=== PATIENT | female | born 1955 | race Caucasian/White ===

== ENCOUNTER 2016-07-21 14:17 | Inpatient (IN) | payer OTHER ==
[~2016-07-21] VITALS: Ht 172.7 cm; Wt 79.3 kg
[2016-07-22] MEDS ORDERED: PLAQ200T PO (15:23)
[2016-07-22] MEDS ORDERED: HYDR-3516 PO (15:23)
[2016-07-22] MEDS ORDERED: MACR100C2 PO (15:23)
[2016-07-22] MEDS ORDERED: TRAM50TA PO (15:23)
[2016-07-22] MEDS ORDERED: MOBI15TA PO (15:23)
[2016-07-22] MEDS ORDERED: TIZA4 PO (15:23)
[2016-07-22] MEDS ORDERED: ACYC200C66 PO (15:25)
[2016-07-22] MEDS ORDERED: BUTA1CAP PO (15:25)
[2016-08-04] MEDS ORDERED: PROPOFOL 200 MG/20 ML AMP IV ONE (07:53)
[2016-08-04] MEDS ORDERED: LACTATED RINGER'S 1000 ML INJ 1,000 ML IV ONE (07:53)
[2016-08-04] MEDS ORDERED: NEOSTIGMINE 3 MG/3 ML SYR IV ONE (07:53)
[2016-08-04] MEDS ORDERED: PHENYLEPH/NS 1000 MCG/10 ML SYR IV ONE (07:53)
[2016-08-04] MEDS ORDERED: ONDANSETRON HCL 4 MG/2 ML VIAL IV PUSH ONE (07:53)
[2016-08-04 08:46] VITALS: BP 108/68; PULSE 78; RESP 16; TEMP 98.6; O2SAT 100
[2016-08-04] MEDS ORDERED: SODIUM CHLOR 0.9% 250 ML INJ 250 ML ONE (09:17)
[2016-08-04] MEDS ORDERED: VANCOMYCIN HCL 1000 MG VIAL ONE (09:18)
[2016-08-04] MEDS ORDERED: ACETAMINOPHEN 1000 MG/100 ML VIAL IV ONE (10:40)
[2016-08-04] MEDS ORDERED: DEXAMETHASONE SOD PHOS 4 MG/ML VIAL ONE (10:41)
[2016-08-04] MEDS ORDERED: FAMOTIDINE 20 MG/2 ML VIAL ONE (10:41)
[2016-08-04] MEDS ORDERED: GENTAMICIN SULFATE 80 MG/2 ML VIAL ONE (10:50)
[2016-08-04] MEDS ORDERED: WALKER/ADULT/FO1 MIS (11:08)
[2016-08-04] MEDS ORDERED: XARE10TA PO (11:08)
[2016-08-04] MEDS ORDERED: HYDR-3366 PO (11:08)
[2016-08-04] MEDS ORDERED: ceFAZolin INJ 1,000 MG VIAL ONE (11:26)
[2016-08-04] MEDS: SODIUM CHLORIDE 0.9% IV SCH ×2 (11:30→11:48)
[2016-08-04] MEDS: TRANEXAMIC ACID IV SCH ×2 (11:30→11:48)
[2016-08-04] MEDS ORDERED: VANCOMYCIN 1000 MG/NS 250 ML (for <70 kg) IV SCH ×2 (11:30)
[2016-08-04] MEDS: CHLORHEXIDINE GLUCONATE 4% SOLN 120 ML BTL TOP SCH (11:30)
[2016-08-04] MEDS: EXPAREL PERI-ARTICULAR INJECTION (TOTAL VOL. 60 ML) P-ARTICULR SCH ×4 (11:30→13:00)
--- NOTE | 2016-08-04 13:13 | PD.OP ---
cc: Adin Noble MD Operative Report Date of Surgery: Aug 04, 2016 Preoperative Diagnosis: Severe left hip osteoarthritis Postoperative Diagnosis: Procedure: left total hip arthroplasty by anterior approach Anesthesia: Gen. Surgeon: Adin Noble Brooch And Bracelet Maker(s): MARISSA Anthony PA-C The surgical procedure was assisted by my physician registered dental assistant. My P.A. presence was necessary throughout this case for the manipulation and positioning of the surgical extremity. My P.A. was assisting me throughout the duration of this procedure. The skill set of a physician registered dental assistant was medically necessary to complete this procedure. During the surgical case the rn surgical was working at the back table and the physician registered dental assistant was directly assisting me. Operation and Findings: PLAN OF ACTIVITY Weight bear as tolerated. DRAINS: 7-mm MAXINE drain. IMPLANTS USED DePuy Corail size [12 high offset stem with a size [50] [place] Gription cup and a [32+1.5] ceramic Biolox ceramic head. DETAILS OF PROCEDURE: This patient has a long history of left hip pain. Patient was found to have severe osteoarthritis. The patient had radiographic evidence of joint space narrowing with [id number] arthritis and osteophytes around the acetabulum as well as the femoral head. There was also some cystic changes. The patient failed conservative treatment with pain medications, anti-inflammatories, physical therapy, assistive devices including a cane, as well as therapeutic injection of the hip. Patient's hip arthritis was limiting his ability to ambulate and perform activities of daily living. The patient wished to proceed with surgery and informed consent was obtained. Operative site was marked. I discussed both posterior approach and anterior approach with the patient and decision was made for anterior approach. Patient was brought to OR and placed on OR table. IV sedation and general anesthesia was administered by anesthesiologist. Patient positioned on a Di table and was given IV antibiotics. Time-out procedure was performed. The hip and thigh were prepped with alcohol followed by Hibiclens. The thigh was draped in the usual sterile fashion. Clean Air Suite was used for this procedure. The procedure began with a 5-inch incision over the anterolateral thigh. Subcutaneous tissue was dissected with Bovie. The fascia over the tensa fasciae latae was incised. Care was taken to avoid injury to the lateral femoral cutaneous nerve. The tensor muscle was retracted laterally. Sartorius was retracted medially. Retractors were now placed. The reflected head of the rectus is now elevated. A capsulotomy was performed over the anterior head capsule. Sutures were placed to help retract the capsule. At this point the femoral head and neck were identified. With soft tissue protected, oscillating saw was used to make a cut through the femoral neck, the femoral head was now removed. At this point attention was turned to preparation of the acetabulum. The labrum was excised. The acetabulum was sequentially reamed up to size [50]. A 50 [place] cup was now placed. Fluoroscopy was used to aid in identification of appropriate version. Cup was fully impacted and found to have excellent fit. Hole eliminator was now placed. The liner was now impacted into the cup. At this point the hip was externally rotated. A hook was placed around the proximal femur. The capsule was released off the lateral and medial femur. The hip was now extended and adducted. Retractors were placed around the proximal femur to allow for exposure. A box osteotome was used to remove the lateral cortex of the femoral neck. A broach was used to help lateralize the prosthesis. Canal finder was used to create a path down the canal. Next, the canal was sequentially broached up to size 12. This was found to be an excellent fit. Calcar planer was placed. A standard head was placed, hip was reduced. Trial head was now was placed and the hip was found to have excellent stability with good range of motion. The leg lengths were measured under fluoroscopy and found to be equal compared to preoperatively. Trial broach was removed. The Corail stem was opened. Stem was fully impacted into the proximal femur in appropriate version. The femoral head was placed. The hip was again reduced. Fluoroscopy confirmed excellent alignment of prosthesis. The wound was thoroughly irrigated and capsule was closed with #1 Vicryl. The fascia over the tensor fasciae muscle was closed with #1 Vicryl, subcutaneous tissue was closed with 3-0 Vicryl and the skin was closed with shelli and Dermabond skin closure. The capsule layers were injected with a mixture of saline and bupivicaine. Dressings were applied. The patient was transferred to Recovery Room in stable condition. Adin Noble MD Aug 04, 2016 13:13
[2016-08-04] MEDS ORDERED: NALOXONE HCL 0.4 MG/ML AMP IV PRN (13:15)
[2016-08-04] MEDS ORDERED: ACETAMINOPHEN/HYDROcodone 325 MG/10 MG TAB PO PRN ×2 (13:15)
[2016-08-04] MEDS ORDERED: Post-op Orders (for Pharmacy) MISC XX ONE (13:15)
[2016-08-04] MEDS ORDERED: ONDANSETRON HCL 4 MG/2 ML VIAL IVP PRN (13:15)
[2016-08-04] MEDS ORDERED: MORPHINE SULFATE 4 MG/ML INJ IV PUSH PRN (13:15)
[2016-08-04] MEDS ORDERED: SODIUM CHLORIDE 0.9% FLUSH 5 ML FLUSH IVF PRN (13:15)
[2016-08-04] MEDS ORDERED: TRANEXAMIC ACID INJ 1,000 MG in SODIUM CHLORIDE 0.9% INJ 100 ML IV SCH (13:30)
[2016-08-04] MEDS ORDERED: DO NOT ADM ANY ANTICOAGULANT DRUGS XX PRN (13:35)
[2016-08-04] MEDS ORDERED: *PROMETHAZINE 25 MG/ML VIAL PERIprocedural use ONLY ONE (13:41)
[2016-08-04] MEDS ORDERED: MIDAZOLAM HCL 2 MG/2 ML VIAL ONE (13:47)
[2016-08-04] MEDS ORDERED: *morphine SULFATE 8 MG/ML PERIprocedure ONLY ONE ×3 (13:47→14:10)
[2016-08-04] MEDS ORDERED: MORPHINE SULFATE 4 MG/ML INJ ONE (13:47)
[2016-08-04] MEDS ORDERED: fentaNYL CITRATE 250 MCG/5 ML AMP ONE (13:48)
[2016-08-04] MEDS ORDERED: ACETAMIN 325 MG/BUTALBITAL 50 MG/CAFFEINE 40 MG TAB PO PRN (14:00)
[2016-08-04] MEDS: LACTATED RINGER'S 1000 ML INJ 1,000 ML IV SCH (14:08)
[2016-08-04] MEDS ORDERED: *HYDROmorphone PF 1 MG VIAL PERIprocedural Use ONLY ONE (14:20)
--- NOTE | 2016-08-04 14:59 | RADRPT ---
EXAM DATE/TIME: 08/04/2016 14:15 [facility] COMPARISON: No previous studies available for comparison. INDICATIONS : Post-op total left hip arthroplasty. MEDICAL HISTORY : None. SURGICAL HISTORY : Fusion, lumbar. Hysterectomy. Cholecystectomy. Right breast lumpectomy. ENCOUNTER: Initial ACUITY: 1 day PAIN SCORE: 5/10 LOCATION: Left hip. FINDINGS: 2 AP views of the pelvis were obtained and demonstrate the patient status post left hip arthroplasty with femoral and acetabular components which are intact and in normal alignment. There is an adjacent surgical drain as well as soft tissue swelling. Degenerative changes are also noted in the right hip with sclerosis, joint space loss and hypertrophic change. There is flattening and remodeling of the superior acetabulum and femoral head. There is mild osteopenia. CONCLUSION: 1. Status post left hip arthroplasty. 2. Moderate to severe degenerative change in the right hip. Travis Day MD on August 04, 2016 at 14:56 Board Certified Radiologist. This report was verified electronically.
[2016-08-04] MEDS: KETOROLAC TROMETHAMINE 30 MG/ML (IVP) VIAL IV PUSH SCH (15:56)
--- NOTE | 2016-08-04 16:12 | RADRPT ---
EXAM DATE/TIME: 08/04/2016 11:42 [facility] COMPARISON: No previous studies available for comparison. INDICATIONS : Left total hip replacement. MEDICAL HISTORY : None. SURGICAL HISTORY : None. ENCOUNTER: Initial ACUITY: 1 day PAIN SCORE: 10/10 LOCATION: Left hip. FINDINGS: AP and oblique views of the left hip were obtained and demonstrate that the patient is status post le ft hip arthroplasty. The femoral and acetabular components are intact and in normal alignment. There are overlying artifacts and surgical skin shelli. CONCLUSION: Dissected postoperative changes status post left hip arthroplasty. Travis Day MD on August 04, 2016 at 16:10 Board Certified Radiologist. This report was verified electronically.
[2016-08-04] MEDS: ceFAZolin 2 GM PREMIX 50 ML IV SCH (19:00)
[2016-08-04 19:30] VITALS: BP 104/62; PULSE 70; RESP 18; TEMP 98; O2SAT 100
[2016-08-04] MEDS: SODIUM CHLORIDE 0.9% FLUSH 5 ML FLUSH IVF SCH (20:50)
[2016-08-04] MEDS: VANCOMYCIN INJ 1,000 MG in SODIUM CHLOR 0.9% 250 ML INJ 250 ML IV SCH (20:59)
[2016-08-04] MEDS ORDERED: ACYCLOVIR 200 MG CAP PO PRN (21:00)
[2016-08-04] MEDS: HYDROXYCHLOROQUINE SULFATE 200 MG TAB PO SCH (21:54)
[2016-08-05] VITALS (10 sets, daily range): BP systolic 81–125; BP diastolic 42–69; PULSE 57–117; RESP 16–17; TEMP 96.3–99.7; O2SAT 92–100
[2016-08-05] MEDS: ceFAZolin 2 GM PREMIX 50 ML IV SCH ×2 (00:24→06:02)
[2016-08-05] MEDS: LACTATED RINGER'S 1000 ML INJ 1,000 ML IV SCH ×2 (01:40→14:10)
[2016-08-05] MEDS: KETOROLAC TROMETHAMINE 30 MG/ML (IVP) VIAL IV PUSH SCH ×2 (03:25→15:43)
--- NOTE | 2016-08-05 06:40 | PD.ORT.PN ---
Subjective Subjective Remarks Pain controlled and doing well Objective Vitals Vital Signs Date Time Temp Pulse Resp B/P Pulse Ox O2 Delivery O2 Flow Rate FiO2 08/05/16 04:00 97.8 73 16 93/53 97 08/05/16 00:00 98.9 58 16 95/49 98 08/04/16 21:05 18 08/04/16 19:30 98.0 70 18 104/62 100 08/04/16 16:56 16 08/04/16 15:05 97.5 63 15 108/60 99 Nasal Cannula 2 08/04/16 15:00 62 14 117/55 100 Nasal Cannula 2 08/04/16 14:45 60 14 112/58 100 Nasal Cannula 2 08/04/16 14:30 75 14 120/62 100 Nasal Cannula 2 08/04/16 14:15 70 14 129/71 100 Nasal Cannula 2 08/04/16 14:00 70 14 118/60 100 Nasal Cannula 2 08/04/16 13:45 78 14 126/75 98 Nasal Cannula 2 08/04/16 13:39 97.5 86 11 123/66 97 Nasal Cannula 2 08/04/16 08:46 98.6 78 16 108/68 100 I/O 08/04/16 08/04/16 08/04/16 08/05/16 08/05/16 08/05/16 07:00 15:00 23:00 07:00 15:00 23:00 Intake Total 1400 ml 350 ml Output Total 870 ml 1050 ml Balance 530 ml -700 ml Intake IV Total 200 ml 350 ml Other 1200 ml Output Urine Total 400 ml 950 ml Drainage Total 70 ml 100 ml Estimated Blood Loss 400 ml Imaging Last 24 hours Impressions Hip and Pelvis X-Ray 08/04/16 1310 Signed Impressions: Service Date/Time: Thursday, August 04, 2016 14:15 - CONCLUSION: 1. Status post left hip arthroplasty. 2. Moderate to severe degenerative change in the right hip. Aileen Day MD Objective Remarks Left lower extremity: Clean dry dressings intact with drain in place. Mild swelling. Full range of motion of knee and ankle. Distally intact sensation with good capillary refills. She has strong dorsiflexion and plantar flexion foot Assessment & Plan Assessment and Plan Left total hip arthroplasty anterior approach POD 1 Physical therapy weightbearing as tolerated twice a day Discontinue drain Begin daily dressing changes POD 2 Case management for home health care and discharge tomorrow to home Lovenox Incentive spirometry and SCDs AILEEN DIAZ PA-C Aug 05, 2016 06:40
[2016-08-05 08:08] LABS: HEMATOCRIT 27.7 % (35.0-46.0); REVIEW FLAG FINAL
[2016-08-05] MEDS: VANCOMYCIN INJ 1,000 MG in SODIUM CHLOR 0.9% 250 ML INJ 250 ML IV SCH (09:26)
[2016-08-05] MEDS: SODIUM CHLORIDE 0.9% FLUSH 5 ML FLUSH IVF SCH ×2 (09:30→22:16)
[2016-08-05] MEDS: HYDROXYCHLOROQUINE SULFATE 200 MG TAB PO SCH ×2 (09:31→22:14)
[2016-08-05] MEDS: CHLORHEXIDINE GLUCONATE 4% SOLN 120 ML BTL TOP SCH (10:46)
[2016-08-05] MEDS ORDERED: MAGNESIUM HYDROXIDE SUSP 30 ML CUP PO ONE (11:00)
[2016-08-05] MEDS: ENOXAPARIN SODIUM 40 MG/0.4 ML SYRINGE SQ SCH (12:59)
--- NOTE | 2016-08-05 14:11 | PD.CONS ---
HPI Service [facility] Hospitalists Consult Requested By Dr. Adin Lares Reason for Consult Medical Management Primary Care Physician Bryant Desir M.D. Diagnoses: History of Present Illness Mrs. St is a pleasant 60 y/o female with osteoarthritis and fibromyalgia who was admitted on 08/04/16 for elective right total hip arthroplasty by anterior approach with Dr. Lares. Post-operatively the pt has been having some hypotension. This is likely secondary to pain medications and anesthesia. In review of previous records she had similar issues with hypotension after lumbar spine surgery in 2011. Pt does not have issues with hypertension and is not on any antihypertensives as an outpt. Pt denies any chest pain, SOB, palpitations, dizziness, weakness, nausea or vomiting. Review of Systems Constitutional: DENIES: Diaphoretic episodes, Fever, Chills, Dizziness Respiratory: DENIES: Shortness of breath Cardiovascular: DENIES: Chest pain, Palpitations Gastrointestinal: DENIES: Nausea, Vomiting Genitourinary: DENIES: Hematuria Musculoskeletal: COMPLAINS OF: Joint pain Integumentary: DENIES: Rash Neurologic: DENIES: Abnormal gait, Headache, Localized weakness Past Family Social History Past Medical History Osteoarthritis Migraine Headaches Fibromyalgia Lumbar radiculopathy Chronic allergic conjunctivitis Past Surgical History Lumbar laminectomy Reported Medications Acyclovir 200 Mg Cap 200 Mg PO BID PRN Fioricet (Chszpnpmhy-Stugztlowrwnk-Phoikgrd) 50-300-40 Mg Cap 1-2 Cap PO Q6H PRN Mobic (Meloxicam) 15 Mg Tab 15 Mg PO DAILY Macrobid (Nitrofurantoin Monoh/Nitrofur Macro) 100 Mg Cap 100 Mg PO BID Zanaflex (Tizanidine HCl) 4 Mg Tab 4 Mg PO TID PRN Tramadol (Tramadol HCl) 50 Mg Tab 50 Mg PO Q6H PRN Plaquenil (Hydroxychloroquine Sulfate) 200 Mg Tab 200 Mg PO BID Take with food Hydrocodone-Acetaminophen 5-325 mg Tab 1 Tab PO Q4H PRN Allergies: Coded Allergies: Penicillin (Unverified Allergy, Severe, 08/04/16) Cipro (Unverified Adverse Reaction, Intermediate, Itching, 08/04/16) Family History Noncontributory Social History Hx of tobacco use, quit in 2009 Nieves any alcohol, or illicit drug use Physical Exam Vital Signs Vital Signs Date Time Temp Pulse Resp B/P Pulse Ox O2 Delivery O2 Flow Rate FiO2 08/05/16 10:31 16 08/05/16 07:33 97.6 67 16 100/63 100 08/05/16 04:00 97.8 73 16 93/53 97 08/05/16 00:00 98.9 58 16 95/49 98 08/04/16 21:05 18 08/04/16 19:30 98.0 70 18 104/62 100 08/04/16 16:56 16 08/04/16 15:05 97.5 63 15 108/60 99 Nasal Cannula 2 08/04/16 15:00 62 14 117/55 100 Nasal Cannula 2 08/04/16 14:45 60 14 112/58 100 Nasal Cannula 2 08/04/16 14:30 75 14 120/62 100 Nasal Cannula 2 08/04/16 14:15 70 14 129/71 100 Nasal Cannula 2 08/04/16 14:00 70 14 118/60 100 Nasal Cannula 2 Physical Exam GENERAL: This is a well-nourished, well-developed patient, in no apparent distress. HEENT: Atraumatic. Normocephalic. No temporal or scalp tenderness. No scleral icterus. Airway patent. NECK: Trachea midline, supple, nontender. CARDIO: Regular. RESP: CTA bilaterally. No wheezes, rales, or rhonchi. ABD: +BS, soft, non-tender, nondistended. EXT: Extremities without clubbing, cyanosis, or edema. NEURO: Awake and alert. Motor and sensory grossly within normal limits. Normal speech. Laboratory Laboratory Tests Test 08/05/16 06:39 Hemoglobin 9.3 Hematocrit 27.7 Result Diagram: 08/05/16 0639 Imaging Last Impressions Hip and Pelvis X-Ray 08/04/16 1310 Signed Impressions: Service Date/Time: Thursday, August 04, 2016 14:15 - CONCLUSION: 1. Status post left hip arthroplasty. 2. Moderate to severe degenerative change in the right hip. Travis Day MD Hip X-Ray 08/04/16 0000 Signed Impressions: Service Date/Time: Thursday, August 04, 2016 11:42 - CONCLUSION: Dissected postoperative changes status post left hip arthroplasty. Travis Day MD Assessment and Plan Problem List: (1) Status post total hip replacement, right Status: Acute Plan: - Pt was admitted on 08/04/16 for elective right total hip arthroplasty by anterior approach with Dr. Lares. - Pt has had some hypotension post-operatively likely secondary to pain medications and anesthesia. Pt does not take any anti-hypertensives as an outpt. - Hold narcotic pain meds due to hypotension - Pt has Toradol 30mg Q12H IV ordered for pain control currently - PT - IS - Constipation precautions - DVT prophylaxis with Lovenox Assessment and Plan Patient examined. Assessment and plan formulated with Kitty Go PA-C. I agree with the above. Kitty Go Aug 05, 2016 14:11 Faustino Stacy DO Aug 09, 2016 07:09
[2016-08-05] MEDS: DOCUSATE SODIUM 100 MG CAP PO SCH (22:13)
[2016-08-05] MEDS: MAGNESIUM HYDROXIDE SUSP 30 ML CUP PO SCH (22:13)
[2016-08-05] MEDS: SENNOSIDES 8.6 MG TAB PO SCH (22:14)
[2016-08-06] VITALS: BP 112/63; PULSE 82; RESP 16; TEMP 99.2; O2SAT 97
[2016-08-06] MEDS: KETOROLAC TROMETHAMINE 30 MG/ML (IVP) VIAL IV PUSH PRN ×2 (01:45→09:04)
[2016-08-06] MEDS: LACTATED RINGER'S 1000 ML INJ 1,000 ML IV SCH ×2 (02:40→15:10)
[2016-08-06 04:00] VITALS: BP 116/64; PULSE 68; RESP 17; TEMP 98.2; O2SAT 99
[2016-08-06] MEDS ORDERED: NORC5TAB PO (06:31)
[2016-08-06 08:00] VITALS: BP 130/63; PULSE 80; RESP 16; TEMP 98.6; O2SAT 98
[2016-08-06] MEDS: DOCUSATE SODIUM 100 MG CAP PO SCH ×2 (09:03→20:19)
[2016-08-06] MEDS: MAGNESIUM HYDROXIDE SUSP 30 ML CUP PO SCH ×2 (09:03→20:19)
[2016-08-06] MEDS: HYDROXYCHLOROQUINE SULFATE 200 MG TAB PO SCH ×2 (09:03→20:19)
[2016-08-06] MEDS: SODIUM CHLORIDE 0.9% FLUSH 5 ML FLUSH IVF SCH ×2 (09:04→20:21)
[2016-08-06] MEDS: CHLORHEXIDINE GLUCONATE 4% SOLN 120 ML BTL TOP SCH (11:30)
[2016-08-06 12:00] VITALS: BP 123/61; PULSE 78; RESP 16; TEMP 97.1; O2SAT 100
[2016-08-06] MEDS: ENOXAPARIN SODIUM 40 MG/0.4 ML SYRINGE SQ SCH (12:46)
--- NOTE | 2016-08-06 15:06 | HHI.PR ---
Subjective Remarks Pt became hypotensive yesterday after receiving hydrocodone. Pt was asymptomatic. Pt denied dizziness or chest pain. Hydrocodone was stopped. Objective Vitals Vital Signs Date Time Temp Pulse Resp B/P Pulse Ox O2 Delivery O2 Flow Rate FiO2 08/06/16 12:00 97.1 78 16 123/61 100 08/06/16 08:00 98.6 80 16 130/63 98 08/06/16 04:00 98.2 68 17 116/64 99 08/06/16 00:00 99.2 82 16 112/63 97 08/05/16 22:08 95 21 08/05/16 20:00 99.7 84 16 115/53 95 08/05/16 16:00 99.0 80 17 99/60 100 08/05/16 15:47 98/54 08/05/16 08/05/16 08/06/16 15:00 23:00 07:00 Intake Total 720 ml 240 ml 240 ml Output Total 100 ml Balance 620 ml 240 ml 240 ml Intake Oral 720 ml 240 ml 240 ml Drainage Total 100 ml # Voids 2 1 2 # Bowel Movements 0 0 Result Diagram: 08/05/16 0639 Imaging Last Impressions Hip and Pelvis X-Ray 08/04/16 1310 Signed Impressions: Service Date/Time: Thursday, August 04, 2016 14:15 - CONCLUSION: 1. Status post left hip arthroplasty. 2. Moderate to severe degenerative change in the right hip. Travis Day MD Hip X-Ray 08/04/16 0000 Signed Impressions: Service Date/Time: Thursday, August 04, 2016 11:42 - CONCLUSION: Dissected postoperative changes status post left hip arthroplasty. Travis Day MD Objective Remarks GENERAL: This is a well-nourished, well-developed patient, in no apparent distress. CARDIOVASCULAR: Regular rate and rhythm without murmurs, gallops, or rubs. RESPIRATORY: Clear to auscultation. Breath sounds equal bilaterally. No wheezes , rales, or rhonchi. GASTROINTESTINAL: Abdomen soft, non-tender, nondistended. Normal active bowel sounds MUSCULOSKELETAL: Extremities without clubbing, cyanosis, or edema. NEURO: Alert & Oriented x4 to person, place, time, situation. Moves all ext x4 A/P Problem List: (1) Status post total hip replacement, right Status: Acute Plan: - POD #2 - Pt was admitted on 08/04/16 for elective right total hip arthroplasty by anterior approach with Dr. Lares. - Pt had asymptomatic hypotension 08/05 after hydrocodone - Pt's hydrocodone was stopped - pt c/o burning with IV toradol - will try PO ultram - PT - IS - Constipation precautions - DVT prophylaxis with Lovenox - anticipate d/c 08/07/16 Faustino Stacy DO Aug 06, 2016 15:06
[2016-08-06] MEDS: traMADol HCL 50 MG TAB PO PRN ×2 (15:19→23:17)
[2016-08-06 16:00] VITALS: BP 112/64; PULSE 78; RESP 16; TEMP 98.7; O2SAT 100
[2016-08-06 20:00] VITALS: BP 137/64; PULSE 85; RESP 16; TEMP 98.8; O2SAT 97
[2016-08-06] MEDS: SENNOSIDES 8.6 MG TAB PO SCH (20:20)
--- NOTE | 2016-08-06 21:35 | PD.ORT.PN ---
Subjective Subjective Remarks Pain controlled and doing well Objective Vitals Vital Signs Date Time Temp Pulse Resp B/P Pulse Ox O2 Delivery O2 Flow Rate FiO2 08/06/16 16:00 98.7 78 16 112/64 100 08/06/16 12:00 97.1 78 16 123/61 100 08/06/16 08:00 98.6 80 16 130/63 98 08/06/16 04:00 98.2 68 17 116/64 99 08/06/16 00:00 99.2 82 16 112/63 97 08/05/16 22:08 95 21 I/O 08/05/16 08/05/16 08/05/16 08/06/16 08/06/16 08/06/16 06:59 14:59 22:59 06:59 14:59 22:59 Intake Total 240 ml 960 ml 240 ml 2440 ml Output Total 750 ml 100 ml Balance -510 ml -100 ml 960 ml 240 ml 2440 ml Intake Oral 240 ml 960 ml 240 ml 2440 ml Output Urine Total 750 ml Drainage Total 100 ml # Voids 3 2 10 # Bowel Movements 0 0 0 0 Result Diagram: 08/05/16 0639 Imaging Last 24 hours Impressions Hip and Pelvis X-Ray 08/04/16 1310 Signed Impressions: Service Date/Time: Thursday, August 04, 2016 14:15 - CONCLUSION: 1. Status post left hip arthroplasty. 2. Moderate to severe degenerative change in the right hip. Aileen Day MD Objective Remarks Left lower extremity: Clean dry dressings intact with drain in place. Mild swelling. Full range of motion of knee and ankle. Distally intact sensation with good capillary refills. She has strong dorsiflexion and plantar flexion foot Assessment & Plan Assessment and Plan Left total hip arthroplasty anterior approach POD 2 Physical therapy weightbearing as tolerated twice a day Begin daily dressing changes Case management for home health care and discharge tomorrow to home Lovenox Incentive spirometry and SCDs AILEEN DIAZ PA-C Aug 06, 2016 21:35
--- NOTE | 2016-08-06 21:37 | HHI.FF ---
Face to Face Verification Diagnosis: (1) Status post total hip replacement, left Physical Therapy Gait training, Safety evaluation Hip: Total hip, Protocol: Left, Posterior hip precautions Right LE Weight Bearing: WB as tolerated Left LE Weight Bearing: WB as tolerated Nursing Dressing Changes: Daily dressing change, Xeroform (begin daily application 08/14), Coverderm/Primapore I have seen patient Jennifer St on 08/06/16. My clinical findings support the need for the requested home health care services because: Limited ability to care for self I certify that my clinical findings support that this patient is homebound because: Unsteady gait/balance AILEEN DIAZ PA-C Aug 06, 2016 21:37
[2016-08-07] VITALS: BP 115/70; PULSE 82; RESP 16; TEMP 98; O2SAT 97
[2016-08-07] MEDS ORDERED: TRAM50TA PO (06:09)
--- NOTE | 2016-08-07 06:27 | PD.ORT.PN ---
Subjective Subjective Remarks Pain controlled and doing well Objective Vitals Vital Signs Date Time Temp Pulse Resp B/P Pulse Ox O2 Delivery O2 Flow Rate FiO2 08/07/16 00:00 98.0 82 16 115/70 97 08/06/16 20:00 98.8 85 16 137/64 97 08/06/16 16:00 98.7 78 16 112/64 100 08/06/16 12:00 97.1 78 16 123/61 100 08/06/16 08:00 98.6 80 16 130/63 98 I/O 08/06/16 08/06/16 08/06/16 08/07/16 08/07/16 08/07/16 07:00 15:00 23:00 07:00 15:00 23:00 Intake Total 240 ml 2440 ml 360 ml Balance 240 ml 2440 ml 360 ml Intake Oral 240 ml 2440 ml 360 ml # Voids 2 10 2 # Bowel Movements 0 0 0 Result Diagram: 08/05/16 0639 Imaging Last 24 hours Impressions Hip and Pelvis X-Ray 08/04/16 1310 Signed Impressions: Service Date/Time: Thursday, August 04, 2016 14:15 - CONCLUSION: 1. Status post left hip arthroplasty. 2. Moderate to severe degenerative change in the right hip. Aileen Day MD Objective Remarks Left lower extremity: Clean dry dressings intact with drain in place. Mild swelling. Full range of motion of knee and ankle. Distally intact sensation with good capillary refills. She has strong dorsiflexion and plantar flexion foot Assessment & Plan Assessment and Plan Left total hip arthroplasty anterior approach POD 3 Physical therapy weightbearing as tolerated twice a day daily dressing changes Case management for home health care and discharge today to home Lovenox Incentive spirometry and SCDs AILEEN DIAZ PA-C Aug 07, 2016 06:27
[2016-08-07 07:01] LABS: AUTOMATED NEUTROPHIL # 7.7 TH/MM3 (1.8-7.7); BASOPHIL % 0.1 % (0.0-2.0); EOSINOPHIL # 0.1 TH/MM3 (0-0.4); EOSINOPHIL % 1.2 % (0.0-4.0); HEMATOCRIT 31.2 % (35.0-46.0); HEMO FLAGS DIFF FINAL; LYMPH % 14.7 % (9.0-44.0); LYMPHOCYTE # 1.5 TH/MM3 (1.0-4.8); MEAN CELL VOLUME 94.7 FL (80.0-100.0); MEAN CORPUSCULAR HEMOGLOBIN 32.1 PG (27.0-34.0); MEAN CORPUSCULAR HGB CONC 33.9 % (32.0-36.0); MONO % 10.3 % (0.0-8.0); NEUT % 73.7 % (16.0-70.0); PLATELET COUNT 220 TH/MM3 (150-450); RED CELL DISTRIBUTION WIDTH 12.9 % (11.6-17.2); WHITE BLOOD COUNT 10.5 TH/MM3 (4.0-11.0)
[2016-08-07 07:20] LABS: BICARBONATE 29.2 MEQ/L (21.0-32.0); MAGNESIUM 2.2 MG/DL (1.5-2.5)
[2016-08-07] MEDS: HYDROXYCHLOROQUINE SULFATE 200 MG TAB PO SCH (07:58)
[2016-08-07] MEDS: traMADol HCL 50 MG TAB PO PRN (07:58)
[2016-08-07] MEDS: DOCUSATE SODIUM 100 MG CAP PO SCH (07:58)
[2016-08-07] MEDS: MAGNESIUM HYDROXIDE SUSP 30 ML CUP PO SCH (07:58)
[2016-08-07] MEDS: SODIUM CHLORIDE 0.9% FLUSH 5 ML FLUSH IVF SCH (07:59)
[2016-08-07 08:00] VITALS: BP 116/67; PULSE 73; RESP 18; TEMP 97.7; O2SAT 100
[2016-08-07] MEDS ORDERED: BISACODYL EC 5 MG TABEC PO PRN (09:00)
[2016-08-07] MEDS: ENOXAPARIN SODIUM 40 MG/0.4 ML SYRINGE SQ SCH (11:25)
--- NOTE | 2016-08-30 12:38 | HHI.DS ---
Discharge Summary Admission Date Aug 04, 2016 at 07:46 Discharge Date: Aug 07, 2016 Admitting Diagnosis Left hip OA Diagnosis: (1) Status post total hip replacement, left Diagnosis: Principal Procedures Left hip total hip arthroplasty with anterior approach PE at Discharge Left lower extremity: Clean dry dressings intact with drain in place. Mild swelling. Full range of motion of knee and ankle. Distally intact sensation with good capillary refills. She has strong dorsiflexion and plantar flexion foot Hospital Course Patient admitted from outpatient basis for elective total hip arthroplasty left hip. Tolerated procedure well. Was admitted to [address] [place] [address]. Was out of bed and a blade with therapy. Postop day 2 daily dressing changes were initiated. She was he will nailing stable and out of bed with therapy. She is fit for discharge home. With home healthcare. She will weight-bear as tolerated and do daily dressing changes. She'll follow-up in the office of Dr. Noble or his PA in 2 weeks Pt Condition on Discharge: Fair Discharge Disposition: Disch w/ Home Health Serv Discharge Instructions Diet Instructions: As Tolerated, No Restrictions Activities You Can Perform: Weight Bearing as Triny Follow up Referrals: Orthopedics - 08/18/16 @ [facility] with Adin Noble MD New Medications: Hydrocodone-Acetaminophen ([place]) 5-325 mg Tab 1 TAB PO Q4H PRN PAIN #60 Ref 0 TAB Rivaroxaban (Xarelto) 10 Mg Tab 10 MG PO DAILY Blood Clot Prevention #14 Ref 0 TAB Walker/Adult/Folding (Walker/Adult/Folding) 1 Mis Mis 1 EA .ROUTE DIRECTED #1 Ref 0 EA Continued Medications: Acyclovir (Acyclovir) 200 Mg Cap 200 MG PO BID PRN Infection Ref 0 CAP Hydroxychloroquine (Plaquenil) 200 Mg Tab 200 MG PO BID Take with food #30 Ref 0 TAB Nitrofurantoin Monohydrate Macrocrystals (Macrobid) 100 Mg Cap 100 MG PO BID Infection Ref 0 CAP Tizanidine (Zanaflex) 4 Mg Tab 4 MG PO TID PRN [place]OL[place] Ref 0 TAB Discontinued Medications: Bsozrakuhz-Nlvvcntwulfdo-Umbeuqze (Fioricet) 50-300-40 Mg Cap 1-2 CAP PO Q6H PRN HEADACHE Ref 0 CAP Hydrocodone-Acetaminophen (Hydrocodone-Acetaminophen) 5-325 mg Tab 1 TAB PO Q4H PRN PAIN Ref 0 TAB Meloxicam (Mobic) 15 Mg Tab 15 MG PO DAILY Arthritis pain Ref 0 TAB Tramadol (Tramadol) 50 Mg Tab 50 MG PO Q6H PRN PAIN Ref 0 TAB Donnie Covington Aug 30, 2016 12:38
== END 2016-08-07 12:09 | disposition home health service (06) | DRG 470 ==
LOC: HSDI 08-04 07:46 → N06A 08-04 21:59
PROVIDERS: ADMIT Orthopaedic Surgery Orthopaedic Trauma; ATTEND Orthopaedic Surgery Orthopaedic Trauma
PROC: 0SR904Z Replacement of Right Hip Joint with Ceramic on Polyethylene Synthetic Substitute, Open Approach (ICD-10-PCS; principal; 2016-08-04 11:20)
DX: M16.11 Unilateral primary osteoarthritis, right hip (principal); M35.00 Sjogren syndrome, unspecified; K21.9 Gastro-esophageal reflux disease without esophagitis; M79.7 Fibromyalgia; I95.2 Hypotension due to drugs; T40.2X5A Adverse effect of other opioids, initial encounter; Y92.239 Unspecified place in hospital as the place of occurrence of the external cause; Z87.891 Personal history of nicotine dependence; Z88.1 Allergy status to other antibiotic agents; Z88.0 Allergy status to penicillin; Z98.1 Arthrodesis status
CPT/HCPCS: 73501; 73502; 76000; 80048; 83735; 85014; 85018; 85025; 86850; 86900; 86901; C1776; C9290; J0131; J0690; J1100; J1170; J1580; J1650; J1885; J2250; J2270; J2370; J2405; J2550; J2710; J3010; J3370; J7050; J7120; L1830

== ENCOUNTER → 2016-07-22 | Outpatient (CLI) | payer OTHER ==
[~2016-07-22] MED LIST: ACYC200C66 PO; BUTA1CAP PO; FIORTAB4 PO; HYDR-3366 PO; HYDR-3516 PO; MACR100C PO; MACR100C2 PO; MOBI15TA PO; NORC5TAB PO; PLAQ200T PO; TIZA4 PO; TRAM50 PO; TRAM50TA PO; WALKER/ADULT/FO1 MIS; XARE10TA PO; ZANA4TAB PO; ZOVI200C24 PO
== END ==
LOC: CPRE 14:23
PROVIDERS: ATTEND Orthopaedic Surgery Orthopaedic Trauma
DX: Z01.810 Encounter for preprocedural cardiovascular examination (principal); Z01.812 Encounter for preprocedural laboratory examination; M79.609 Pain in unspecified limb

== ENCOUNTER 2016-12-21 09:16 | Inpatient (IN) | payer OTHER ==
[~2016-12-21] VITALS: Ht 172.7 cm; Wt 74.0 kg
[~2016-12-21 09:16] MED LIST changes: -CALCTAB33 PO; -CHOL20005 PO; -CROM4SOL2 EACH EYE; -MELO7.5T4 PO; -NORC5TAB PO; -TRAM50TA PO; -VITA200C3 PO; -WALKER/ADULT/FO1 MIS; -XARE10TA PO
[2016-12-21] MEDS ORDERED: MELO7.5T4 PO (09:34)
[2016-12-21] MEDS ORDERED: CHOL20005 PO (09:34)
[2016-12-21] MEDS ORDERED: CROM4SOL2 EACH EYE (09:34)
[2016-12-21] MEDS ORDERED: TRAM50TA PO (09:34)
[2016-12-21] MEDS ORDERED: CALCTAB33 PO (09:34)
[2016-12-21] MEDS ORDERED: VITA200C3 PO (09:34)
[2017-02-16] MEDS ORDERED: INSULIN HUMAN REGULAR 1,000 UNITS/10 ML VIAL SQ PRN (07:00)
[2017-02-16] MEDS ORDERED: METOPROLOL TARTRATE 25 MG TAB PO PRN (07:00)
[2017-02-16] MEDS ORDERED: VANCOMYCIN 1000 MG/NS 250 ML (for <70 kg) IV SCH ×2 (07:00)
[2017-02-16] MEDS ORDERED: SODIUM CHLORID 0.9% 500 ML IV PRN (07:00)
[2017-02-16] MEDS ORDERED: POVIDONE IODINE 5% (ANTISEPSIS KIT) 4 APPLICATIONS EACH NARE PRN (07:00)
[2017-02-16] MEDS ORDERED: LACTATED RINGER'S 1000 ML IV PRN (07:00)
[2017-02-16] MEDS ORDERED: CHLORHEXIDINE GLUCONATE 4% SOLN 120 ML BTL TOPICAL SCH (07:00)
[2017-02-16] MEDS ORDERED: CHLORHEXIDINE GLUCONATE 2 % 1 PACK (2 CLOTHS) TOPICAL PRN (07:00)
[2017-02-16] MEDS ORDERED: HYDR-3583 PO (07:25)
[2017-02-16] MEDS ORDERED: XARE10TA PO (07:25)
--- NOTE | 2017-02-16 07:26 | HHI.FF ---
Face to Face Verification Diagnosis: (1) Status post total hip replacement, right Physical Therapy Hip: Total hip, Protocol: Right Right LE Weight Bearing: WB as tolerated Nursing Dressing Changes: Daily dressing change, Coverderm/Primapore (begin adding xeroform POD 10) I have seen patient Jennifer St on 02/16/17. My clinical findings support the need for the requested home health care services because: Ltd mobility - disease progression I certify that my clinical findings support that this patient is homebound because: Post-op weakness Donnie Coivngton Feb 16, 2017 07:26
[2017-02-16] MEDS ORDERED: ceFAZolin 2 GM PREMIX 50 ML ONE (08:26)
[2017-02-16] MEDS ORDERED: GENTAMICIN SULFATE 80 MG/2 ML VIAL ONE (08:26)
[2017-02-16] MEDS ORDERED: PHENYLEPH/NS 1000 MCG/10 ML SYR IV ONE (08:30)
[2017-02-16] MEDS ORDERED: ePHEDrine/NS 25 MG/5 ML SYR IV ONE (08:30)
[2017-02-16] MEDS ORDERED: PROPOFOL 200 MG/20 ML AMP IV ONE (08:30)
[2017-02-16] MEDS ORDERED: ONDANSETRON HCL 4 MG/2 ML VIAL IV PUSH ONE (08:30)
[2017-02-16] MEDS ORDERED: LACTATED RINGER'S 1000 ML INJ 1,000 ML IV ONE (08:30)
[2017-02-16] MEDS ORDERED: NEOSTIGMINE 3 MG/3 ML SYR IV ONE (08:30)
[2017-02-16] MEDS ORDERED: ACETAMINOPHEN 1000 MG/100 ML 100 ML IV ONE (09:22)
[2017-02-16] MEDS ORDERED: FAMOTIDINE 20 MG/2 ML VIAL ONE (09:22)
[2017-02-16] MEDS ORDERED: DEXAMETHASONE SOD PHOS 4 MG/ML VIAL ONE (09:22)
[2017-02-16] MEDS ORDERED: BUPIVACAINE LIPOSO PF 1.3% INJ 20 ML in SODIUM CHLORIDE 0.9% INJ 40 ML P-ARTICULR SCH (09:30)
[2017-02-16] MEDS ORDERED: TRANEXAMIC ACID IV SCH (09:30)
[2017-02-16] MEDS ORDERED: SODIUM CHLORIDE 0.9% IV SCH (09:30)
[2017-02-16] MEDS ORDERED: APREPITANT 40 MG CAP ONE (09:35)
--- NOTE | 2017-02-16 12:10 | PD.OP ---
cc: Adin Noble MD Operative Report Date of Surgery: Feb 16, 2017 Preoperative Diagnosis: severe right hip osteoarthritis Postoperative Diagnosis: Procedure: right total hip replacement Surgeon: Adin Noble Edger Machine Operator(s): MARISSA Anthony PA-C The surgical procedure was assisted by my physician scheduling assistant. My P.A. presence was necessary throughout this case for the manipulation and positioning of the surgical extremity. My P.A. was assisting me throughout the duration of this procedure. The skill set of a physician scheduling assistant was medically necessary to complete this procedure. During the surgical case the nursing surgical services director was working at the back table and the physician scheduling assistant was directly assisting me. Operation and Findings: PLAN OF ACTIVITY Weight bear as tolerated. DRAINS: 7-mm MAXINE drain. IMPLANTS USED DePuy Corail size [12] high offset stem with a size [52] [place] Gription cup, [52/32] Altrx poly liner, and a [32+5] ceramic Biolox ceramic head. DETAILS OF PROCEDURE: This patient has a long history of hip pain. Patient was found to have severe osteoarthritis. The patient had radiographic evidence of joint space narrowing with [id number] arthritis and osteophytes around the acetabulum as well as the femoral head. There was also some cystic changes. The patient failed conservative treatment with pain medications, anti-inflammatories, physical therapy, assistive devices including a cane, as well as therapeutic injection of the hip. Patient's hip arthritis was limiting his ability to ambulate and perform activities of daily living. The patient wished to proceed with surgery and informed consent was obtained. Operative site was marked. I discussed both posterior approach and anterior approach with the patient and decision was made for anterior approach. Patient was brought to OR and placed on OR table. IV sedation and general anesthesia was administered by anesthesiologist. Patient positioned on a Di table and was given IV antibiotics. Time-out procedure was performed. The hip and thigh were prepped with alcohol followed by Hibiclens. The thigh was draped in the usual sterile fashion. Clean Air Suite was used for this procedure. The procedure began with a 5-inch incision over the anterolateral thigh. Subcutaneous tissue was dissected with Bovie. The fascia over the tensa fasciae latae was incised. Care was taken to avoid injury to the lateral femoral cutaneous nerve. The tensor muscle was retracted laterally. Sartorius was retracted medially. Retractors were now placed. The reflected head of the rectus is now elevated. A capsulotomy was performed over the anterior head capsule. Sutures were placed to help retract the capsule. At this point the femoral head and neck were identified. With soft tissue protected, oscillating saw was used to make a cut through the femoral neck, the femoral head was now removed. At this point attention was turned to preparation of the acetabulum. The labrum was excised. The acetabulum was sequentially reamed up to size [52]. A [place] cup was now placed. Fluoroscopy was used to aid in identification of appropriate version. Cup was fully impacted and found to have excellent fit. Hole eliminator was now placed. The liner was now impacted into the cup. At this point the hip was externally rotated. A hook was placed around the proximal femur. The capsule was released off the lateral and medial femur. The hip was now extended and adducted. Retractors were placed around the proximal femur to allow for exposure. A box osteotome was used to remove the lateral cortex of the femoral neck. A broach was used to help lateralize the prosthesis. Canal finder was used to create a path down the canal. Next, the canal was sequentially broached up to size [12]. This was found to be an excellent fit. Calcar planer was placed. A high offset neck was trialed to match patient's contralateral side. A standard head was placed, and the hip was reduced. The hip was found to have excellent stability with good range of motion. The leg lengths were measured under fluoroscopy and found to be equal compared to preoperatively. Trial broach was removed. The Corail stem was opened. Stem was fully impacted into the proximal femur in appropriate version. The femoral head was placed. The hip was again reduced. Fluoroscopy confirmed excellent alignment of prosthesis. The wound was thoroughly irrigated and capsule was closed with #1 Vicryl. The fascia over the tensor fasciae muscle was closed with #1 Vicryl, subcutaneous tissue was closed with 3-0 Vicryl and the skin was closed with shelli and Dermabond skin closure. The capsule layers, muscle, and subcutaneous tissue were injected with a mixture of saline and bupivicaine. Dressings were applied. The patient was transferred to Recovery Room in stable condition. Adin Noble MD Feb 16, 2017 12:10
[2017-02-16] MEDS ORDERED: SODIUM CHLORIDE 0.9% FLUSH 5 ML FLUSH IVF PRN (12:15)
[2017-02-16] MEDS ORDERED: ACETAMINOPHEN/HYDROcodone 325 MG/10 MG TAB PO PRN (12:15)
[2017-02-16] MEDS ORDERED: NALOXONE HCL 0.4 MG/ML AMP IV PRN (12:15)
[2017-02-16] MEDS ORDERED: ACETAMINOPHEN/HYDROcodone 325 MG/7.5 MG TAB PO PRN (12:15)
[2017-02-16] MEDS ORDERED: Post-op Orders (for Pharmacy) MISC XX ONE (12:15)
[2017-02-16] MEDS ORDERED: DO NOT ADM ANY ANTICOAGULANT DRUGS PRN (12:27)
[2017-02-16] MEDS: LACTATED RINGER'S 1000 ML INJ 1,000 ML IV SCH (12:38)
[2017-02-16] MEDS ORDERED: *ONDANSETRON 4 MG VIAL PERIprocedural Use ONLY ONE (12:40)
[2017-02-16] MEDS ORDERED: MIDAZOLAM HCL 2 MG/2 ML VIAL ONE (12:44)
[2017-02-16] MEDS ORDERED: *MEPERIDINE 25 MG INJ VIAL PERIprocedural Use ONLY ONE (12:47)
[2017-02-16] MEDS ORDERED: *PROMETHAZINE 25 MG/ML VIAL PERIprocedural use ONLY ONE (12:54)
[2017-02-16] MEDS ORDERED: *morphine SULFATE 8 MG/ML PERIprocedure ONLY ONE (13:44)
[2017-02-16] MEDS ORDERED: CROMOLYN OPTH EACH EYE PRN (14:30)
[2017-02-16] MEDS: KETOROLAC TROMETHAMINE 30 MG/ML (IVP) VIAL IV PUSH SCH (14:54)
--- NOTE | 2017-02-16 14:54 | RADRPT ---
EXAM DATE/TIME: 02/16/2017 11:33 [facility] COMPARISON: No previous studies available for comparison. INDICATIONS : Right total hip arthroplasty. MEDICAL HISTORY : None. SURGICAL HISTORY : Fusion, lumbar. Hysterectomy. Cholecystectomy. Right breast lumpectomy. ENCOUNTER: Initial ACUITY: 1 day PAIN SCORE: Non-responsive. LOCATION: Right hip FINDINGS: There is a total right hip arthroplasty in place well-seated CONCLUSION: Well-seated total hip prosthesis Zacarias Grijalva MD on February 16, 2017 at 14:52 Board Certified Radiologist. This report was verified electronically.
[2017-02-16] MEDS ORDERED: TRANEXAMIC ACID INJ 1,000 MG in SODIUM CHLORIDE 0.9% INJ 100 ML IV SCH (15:00)
--- NOTE | 2017-02-16 16:40 | RADRPT ---
EXAM DATE/TIME: 02/16/2017 13:30 [facility] COMPARISON: HIP RIGHT LATERAL ONLY W AP PELVIS, August 04, 2016, 14:15. HIP LEFT (AP&LAT 2/3VWS) WO AP PELVIS, August 04, 2016, 11:42. INDICATIONS : Post op right hip surgery. MEDICAL HISTORY : None. SURGICAL HISTORY : Fusion, lumbar. Hysterectomy. Cholecystectomy. Right breast lumpectomy. ENCOUNTER: Initial ACUITY: 1 day PAIN SCORE: 7/10 LOCATION: Right Hip. FINDINGS: The note we placed left total hip prosthesis remains in place well-seated compared majority of pelvis is visualized is intact. There is a new right total hip prosthesis well seated with overlying surgic al drain and superficial surgical shelli. CONCLUSION: New right total hip prosthesis well seated with postsurgical changes . Remote left total hip prosthes is well seated. Intact pelvis Zacarias Grijalva MD on February 16, 2017 at 16:36 Board Certified Radiologist. This report was verified electronically.
[2017-02-16] MEDS: MORPHINE SULFATE 4 MG/ML INJ IV PUSH PRN ×2 (16:54→21:04)
[2017-02-16 20:50] VITALS: BP 112/55; PULSE 74; RESP 16; TEMP 97.2; O2SAT 100
[2017-02-16] MEDS: ceFAZolin 2 GM PREMIX 50 ML IV SCH (21:04)
[2017-02-16] MEDS: SODIUM CHLORIDE 0.9% FLUSH 5 ML FLUSH IVF SCH (21:17)
[2017-02-16] MEDS: VANCOMYCIN INJ 1,000 MG in SODIUM CHLOR 0.9% 250 ML INJ 250 ML IV SCH (21:18)
[2017-02-16 22:35] VITALS: O2SAT 99
[2017-02-16] MEDS: ONDANSETRON HCL 4 MG/2 ML VIAL IVP PRN (22:58)
[2017-02-16 23:10] VITALS: BP 104/50; PULSE 67; RESP 18; TEMP 96.6; O2SAT 99
[2017-02-17] VITALS (7 sets, daily range): BP systolic 95–116; BP diastolic 47–62; PULSE 18–86; RESP 16–19; TEMP 96.1–99.1; O2SAT 96–100
[2017-02-17] MEDS: ceFAZolin 2 GM PREMIX 50 ML IV SCH (02:19)
[2017-02-17] MEDS: KETOROLAC TROMETHAMINE 30 MG/ML (IVP) VIAL IV PUSH SCH (02:19)
[2017-02-17] MEDS: LACTATED RINGER'S 1000 ML INJ 1,000 ML IV SCH ×3 (02:24→21:29)
--- NOTE | 2017-02-17 06:40 | PD.ORT.PN ---
Subjective Subjective Remarks Patient doing well status post right total hip arthroplasty. Went to bathroom this morning to clean herself up and became lightheaded she sat down and was beginning to recover as she stood up to go back to bed she had a syncopal episode. Nurses and staff were able to get her safely back to bed without a fall. Patient was aroused and is alert and oriented 3 at this moment. She does have a history of syncopal episodes and bradycardia. Objective Vitals Vital Signs Date Time Temp Pulse Resp B/P (MAP) Pulse Ox O2 Delivery O2 Flow Rate FiO2 02/16/17 23:10 96.6 67 18 104/50 (68) 99 02/16/17 22:35 99 02/16/17 20:50 97.2 74 16 112/55 (74) 100 02/16/17 18:00 75 15 117/55 (75) 99 Room Air 02/16/17 17:01 16 02/16/17 17:00 72 15 118/57 (77) 97 Room Air 02/16/17 16:00 71 16 108/52 (70) 98 Room Air 02/16/17 15:54 16 02/16/17 15:00 74 15 108/54 (72) 96 Room Air 02/16/17 14:30 73 17 116/57 (76) 99 Room Air 02/16/17 14:15 73 16 111/56 (74) 99 Room Air 02/16/17 14:00 77 15 112/57 (75) 99 Nasal Cannula 2 02/16/17 13:45 78 15 118/61 (80) 99 Nasal Cannula 2 02/16/17 13:30 76 16 115/56 (75) 99 Nasal Cannula 2 02/16/17 13:15 71 15 109/53 (71) 99 Nasal Cannula 2 02/16/17 13:00 68 16 112/54 (73) 98 Nasal Cannula 2 02/16/17 12:45 70 16 116/55 (75) 99 Nasal Cannula 2 02/16/17 12:30 97.5 74 16 115/59 (77) 98 Nasal Cannula 2 02/16/17 07:51 97.9 77 16 110/51 (70) 99 I/O 8/29/17 8/29/17 8/29/17 8/30/17 8/30/17 8/30/17 07:00 15:00 23:00 07:00 15:00 23:00 Intake Total 1750 ml 929 ml 50 ml Output Total 400 ml 100 ml Balance 1350 ml 829 ml 50 ml Intake Oral 240 ml IV Total 250 ml 689 ml 50 ml Other 1500 ml Output Drainage Total 100 ml Estimated Blood Loss 400 ml # Voids 2 # Bowel Movements 0 Imaging Last 24 hours Impressions Hip and Pelvis X-Ray 02/16/17 1202 Signed Impressions: Service Date/Time: Thursday, February 16, 2017 13:30 - CONCLUSION: New right total hip prosthesis well seated with postsurgical changes . Remote left total hip prosthesis well seated. Intact pelvis Zacarias Grijalva MD Objective Remarks Right lower extremity: Clean dry dressings intact with drain in place. Minimal swelling. Distally neurovascularly intact. Strong dorsal flexion plantar flexion foot Assessment & Plan Assessment and Plan Right total hip arthroplasty anterior approach POD 1 Weightbearing as tolerated with PT twice a day Change dressing and DC drain this morning after physical therapy Consult hospitalist for evaluation of syncopal episode Lovenox Incentive spirometry SCDs and JOSH kwon We'll plan on discharge to home tomorrow if patient is stable and doing well with physical therapy Travis Guillen Jr. Feb 17, 2017 06:40
[2017-02-17 07:40] LABS: HEMATOCRIT 29.7 % (35.0-46.0); REVIEW FLAG FINAL
[2017-02-17] MEDS: VITAMIN E 400 UNIT CAP PO SCH (08:36)
[2017-02-17] MEDS: CALCIUM/VITAMIN D 250 MG/125 U TAB PO SCH (08:36)
[2017-02-17] MEDS: CHOLECALCIFEROL (VIT D3) 1000 UNIT TAB PO SCH (08:37)
[2017-02-17] MEDS: VANCOMYCIN INJ 1,000 MG in SODIUM CHLOR 0.9% 250 ML INJ 250 ML IV SCH (08:44)
[2017-02-17] MEDS: SODIUM CHLORIDE 0.9% FLUSH 5 ML FLUSH IVF SCH ×2 (08:44→21:28)
[2017-02-17] MEDS ORDERED: PNEUMOCOCCAL POLYVALENT INJ 25 MCG/0.5 ML SYR IM ONE (10:00)
[2017-02-17] MEDS: ENOXAPARIN SODIUM 40 MG/0.4 ML SYRINGE SQ SCH (11:19)
--- NOTE | 2017-02-17 12:17 | PD.CONS ---
HPI Service [facility] Hospitalists Consult Requested By Dr. Adin Lares Reason for Consult near syncope Primary Care Physician Bryant Desir M.D. Diagnoses: History of Present Illness Patient is a pleasant 61-year-old female with history of osteoarthritis and fibromyalgia who was admitted 02/16/17 for elective right total hip arthroplasty. Patient previously underwent left total hip arthroplasty with Dr. Lares July 2016. During patient's July hospitalization patient had difficulties with hypotension attributed to anesthesia and pain medications. This morning patient went to the bathroom to clean herself. Patient became lightheaded and had to sit down. When she stood up to return to the bed, pt again became dizzy. Nurses were able to assist her back to bed without a fall. Review of Systems Constitutional: DENIES: Diaphoretic episodes, Fatigue, Fever, Weight gain, Weight loss, Chills, Dizziness, Change in appetite, Night Sweats Endocrine: DENIES: Heat/cold intolerance, Polydipsia, Polyuria, Polyphagia Eyes: DENIES: Blurred vision, Diplopia, Eye inflammation, Eye pain, Vision loss , Photosensitivity, Double Vision Ears, nose, mouth, throat: DENIES: Tinnitus, Hearing loss, Vertigo, Nasal discharge, Oral lesions, Throat pain, Hoarseness, Ear Pain, Running Nose, Epistaxis, Sinus Pain, Toothache, Odynophagia Respiratory: DENIES: Apneas, Cough, Snoring, Wheezing, Hemoptysis, Sputum production, Shortness of breath Cardiovascular: DENIES: Chest pain, Palpitations, Syncope, Dyspnea on Exertion , PND, Lower Extremity Edema, Orthopnea, Claudication Gastrointestinal: DENIES: Abdominal pain, Black stools, Bloody stools, BRB per rectum, Constipation, Diarrhea, GERD, Nausea, Reflux, Vomiting, Difficulty Swallowing, Anorexia Genitourinary: COMPLAINS OF: Dyspareunia, DENIES: Urinary frequency, Urinary incontinence, Urgency, Hematuria, Dysuria, Nocturia Musculoskeletal: DENIES: Joint pain, Muscle aches, Stiffness, Joint Swelling, Back pain, Neck pain Integumentary: DENIES: Abnormal pigmentation, Pruritus, Rash, Nail changes, Breast masses, Breast skin changes, Nipple discharge Hematologic/lymphatic: DENIES: Bruising, Lymphadenopathy Immunologic/allergic: DENIES: Eczema, Urticaria Neurologic: DENIES: Abnormal gait, Headache, Localized weakness, Paresthesias, Seizures, Speech Problems, Tremor, Poor Balance Psychiatric: DENIES: Anxiety, Confusion, Mood changes, Depression, Hallucinations, Agitation, Suicidal Ideation, Homicidal Ideation, Delusions, History of Bipolar, History of Schizophrenia Past Family Social History Past Medical History Osteoarthritis Migraine Headaches Fibromyalgia Lumbar radiculopathy Chronic allergic conjunctivitis Past Surgical History 1) lumbar laminectomy 2) Right NOLAN 07/2016 3) left NOLAN 02/16/17 Allergies: Coded Allergies: penicillin G (Unverified Allergy, Severe, 02/16/17) ciprofloxacin (Unverified Adverse Reaction, Intermediate, Itching, 02/16/17 ) Family History Non-contributory Social History - quit smoking tobacco 2009 - NO alcohol - NO illicit street drugs Physical Exam Vital Signs Vital Signs Date Time Temp Pulse Resp B/P (MAP) Pulse Ox O2 Delivery O2 Flow Rate FiO2 02/17/17 08:00 96.2 74 17 110/62 (78) 100 02/17/17 06:45 96.1 78 19 95/47 (63) 97 02/17/17 04:45 97.7 81 16 99/53 (68) 98 02/16/17 23:10 96.6 67 18 104/50 (68) 99 02/16/17 22:35 99 02/16/17 20:50 97.2 74 16 112/55 (74) 100 02/16/17 18:00 75 15 117/55 (75) 99 Room Air 02/16/17 17:01 16 02/16/17 17:00 72 15 118/57 (77) 97 Room Air 02/16/17 16:00 71 16 108/52 (70) 98 Room Air 02/16/17 15:54 16 02/16/17 15:00 74 15 108/54 (72) 96 Room Air 02/16/17 14:30 73 17 116/57 (76) 99 Room Air 02/16/17 14:15 73 16 111/56 (74) 99 Room Air 02/16/17 14:00 77 15 112/57 (75) 99 Nasal Cannula 2 02/16/17 13:45 78 15 118/61 (80) 99 Nasal Cannula 2 02/16/17 13:30 76 16 115/56 (75) 99 Nasal Cannula 2 02/16/17 13:15 71 15 109/53 (71) 99 Nasal Cannula 2 02/16/17 13:00 68 16 112/54 (73) 98 Nasal Cannula 2 02/16/17 12:45 70 16 116/55 (75) 99 Nasal Cannula 2 02/16/17 12:30 97.5 74 16 115/59 (77) 98 Nasal Cannula 2 Physical Exam GENERAL: This is a well-nourished, well-developed patient, in no apparent distress. SKIN: No rashes, ecchymoses or lesions. Cool and dry. HEAD: Atraumatic. Normocephalic. No temporal or scalp tenderness. EYES: Pupils equal round and reactive. Extraocular motions intact. No scleral icterus. No injection or drainage. ENT: Nose without bleeding, purulent drainage or septal hematoma. Throat without erythema, tonsillar hypertrophy or exudate. Uvula midline. Airway patent. NECK: Trachea midline. No JVD or lymphadenopathy. Supple, nontender, no meningeal signs. CARDIOVASCULAR: Regular rate and rhythm without murmurs, gallops, or rubs. RESPIRATORY: Clear to auscultation. Breath sounds equal bilaterally. No wheezes , rales, or rhonchi. GASTROINTESTINAL: Abdomen soft, non-tender, nondistended. No hepato-splenomegaly , or palpable masses. No guarding. MUSCULOSKELETAL: Extremities without clubbing, cyanosis, or edema. No joint tenderness, effusion, or edema noted. No calf tenderness. Negative Homans sign bilaterally. NEUROLOGICAL: Awake and alert. Cranial nerves II through XII intact. Motor and sensory grossly within normal limits. Five out of 5 muscle strength in all muscle groups. Normal speech. Laboratory Laboratory Tests Test 02/17/17 07:20 Hemoglobin 10.1 Hematocrit 29.7 Result Diagram: 02/17/17 0720 Imaging Last Impressions Hip and Pelvis X-Ray 02/16/17 1202 Signed Impressions: Service Date/Time: Thursday, February 16, 2017 13:30 - CONCLUSION: New right total hip prosthesis well seated with postsurgical changes . Remote left total hip prosthesis well seated. Intact pelvis Zacarias Grijalva MD Hip X-Ray 02/16/17 0000 Signed Impressions: Service Date/Time: Thursday, February 16, 2017 11:33 - CONCLUSION: Well-seated total hip prosthesis Zacarias Grijalva MD Assessment and Plan Problem List: (1) Status post total hip replacement, right ICD Codes: Z96.641 - Presence of right artificial hip joint Status: Acute Plan: - pt underwent right NOLAN with Dr. Adin Lares 02/16/17 - pt previously underwent left NOLAN with Dr. Adin Lares - lovenox - tylenol/toradol prn pain - DVT prophylaxis - supportive care - anticipate d/c to home 02/18/17 with [facility] and home PT (2) Near syncope ICD Codes: R55 - Syncope and collapse Plan: - pt's near syncope likely d/t hypotension related to recent anesthesia and narcotics - pt had similar difficulties following previous surgery in July - observe pt on telemetry - stop morphine, stop norco - tylenol/toradol for pain - observe Faustino Stacy DO Feb 17, 2017 12:17
[2017-02-17] MEDS ORDERED: ACETAMINOPHEN 325 MG TAB PO PRN (12:30)
[2017-02-17] MEDS: KETOROLAC TROMETHAMINE 10 MG TAB PO PRN ×2 (15:21→21:25)
[2017-02-17 15:48] LABS: BICARBONATE 32.3 MEQ/L (21.0-32.0); POTASSIUM 3.9 MEQ/L (3.5-5.1)
[2017-02-17 16:14] LABS: FREE T4 1.15 NG/DL (0.76-1.46)
[2017-02-17] MEDS: traMADol HCL 50 MG TAB PO PRN ×2 (16:22→22:30)
[2017-02-17] MEDS: DOCUSATE SODIUM 100 MG CAP PO SCH (21:25)
[2017-02-18] VITALS (7 sets, daily range): BP systolic 99–126; BP diastolic 46–60; PULSE 77–92; RESP 16–17; TEMP 97.4–99.5; O2SAT 97–100
[2017-02-18] MEDS: traMADol HCL 50 MG TAB PO PRN (04:23)
[2017-02-18] MEDS: ONDANSETRON HCL 4 MG/2 ML VIAL IVP PRN ×2 (04:25→13:27)
[2017-02-18 06:53] LABS: AUTOMATED NEUTROPHIL # 6.1 TH/MM3 (1.8-7.7); BASOPHIL % 0.5 % (0.0-2.0); EOSINOPHIL # 0.1 TH/MM3 (0-0.4); EOSINOPHIL % 1.6 % (0.0-4.0); HEMO FLAGS DIFF FINAL; LYMPHOCYTE # 1.2 TH/MM3 (1.0-4.8); MEAN CELL VOLUME 94.8 FL (80.0-100.0); MEAN CORPUSCULAR HEMOGLOBIN 32.2 PG (27.0-34.0); MONO % 11.6 % (0.0-8.0); NEUT % 72.3 % (16.0-70.0); PLATELET COUNT 197 TH/MM3 (150-450); RED BLOOD COUNT 2.84 MIL/MM3 (4.00-5.30); RED CELL DISTRIBUTION WIDTH 14.3 % (11.6-17.2); WHITE BLOOD COUNT 8.5 TH/MM3 (4.0-11.0)
--- NOTE | 2017-02-18 07:01 | PD.ORT.PN ---
Subjective Subjective Remarks POD 2 s/p Right NOLAN improving. reports no more issues with dizziness. States her norco was DCd yesterday and transitioned to Ultram. states that ultram not sufficient for her pain and that was in intense pain yesterday and could not control it. got out of bed and went to bathroom yesterday. requesting to be placed back on norco. Objective Vitals Vital Signs Date Time Temp Pulse Resp B/P (MAP) Pulse Ox O2 Delivery O2 Flow Rate FiO2 02/18/17 04:40 98.5 92 17 99/46 (63) 97 02/18/17 03:17 97 02/17/17 23:45 98.0 86 16 110/56 (74) 96 02/17/17 22:25 18 02/17/17 21:35 99.1 86 17 112/53 (72) 97 02/17/17 13:50 100 02/17/17 12:00 97.8 18 18 116/56 (76) 100 02/17/17 08:00 96.2 74 17 110/62 (78) 100 I/O 02/17/17 02/17/17 02/17/17 02/18/17 02/18/17 02/18/17 07:00 15:00 23:00 07:00 15:00 23:00 Intake Total 50 ml 1530 ml 940 ml 480 ml Output Total 70 ml Balance -20 ml 1530 ml 940 ml 480 ml Intake Oral 1280 ml 940 ml 480 ml IV Total 50 ml 250 ml Output Drainage Total 70 ml # Voids 7 4 3 # Bowel Movements 0 0 0 Result Diagram: 02/18/17 0552 02/17/17 1508 Imaging Last 24 hours Impressions Hip and Pelvis X-Ray 02/16/17 1202 Signed Impressions: Service Date/Time: Thursday, February 16, 2017 13:30 - CONCLUSION: New right total hip prosthesis well seated with postsurgical changes . Remote left total hip prosthesis well seated. Intact pelvis Zacarias Grijalva MD Objective Remarks Right lower extremity: Clean dry dressings intact with drain in place. Minimal swelling. Distally neurovascularly intact. Strong dorsal flexion plantar flexion foot Assessment & Plan Assessment and Plan 1) Right total hip arthroplasty anterior approach POD 2 Weightbearing as tolerated with PT twice a day Change dressing daily Lovenox Incentive spirometry SCDs and JOSH kwon will restart [place] and DC ultram today will monitor if patient doing well and pain controlled, potential discharge this afternoon. But likely will plan for DC tomorrow once has sufficient PT f/u with Luda or [facility] in 2 weeks Donnie Covington Feb 18, 2017 07:01
[2017-02-18 07:12] LABS: BICARBONATE 30.3 MEQ/L (21.0-32.0); MAGNESIUM 1.9 MG/DL (1.5-2.5); POTASSIUM 3.9 MEQ/L (3.5-5.1)
[2017-02-18] MEDS ORDERED: ACETAMINOPHEN/HYDROcodone 325 MG/10 MG TAB PO PRN (08:00)
[2017-02-18] MEDS: VITAMIN E 400 UNIT CAP PO SCH (09:10)
[2017-02-18] MEDS: DOCUSATE SODIUM 100 MG CAP PO SCH ×2 (09:10→20:11)
[2017-02-18] MEDS: CALCIUM/VITAMIN D 250 MG/125 U TAB PO SCH (09:10)
[2017-02-18] MEDS: CHOLECALCIFEROL (VIT D3) 1000 UNIT TAB PO SCH (09:10)
[2017-02-18] MEDS: ENOXAPARIN SODIUM 40 MG/0.4 ML SYRINGE SQ SCH (09:11)
[2017-02-18] MEDS: SODIUM CHLORIDE 0.9% FLUSH 5 ML FLUSH IVF SCH ×2 (09:11→20:12)
[2017-02-18] MEDS: ACETAMINOPHEN/HYDROcodone 325 MG/7.5 MG TAB PO PRN ×4 (09:12→21:38)
[2017-02-18] MEDS: LACTATED RINGER'S 1000 ML INJ 1,000 ML IV SCH ×2 (15:10→20:12)
[2017-02-18] MEDS ORDERED: ONDANSETRON ODT 4 MG TAB PO PRN (16:45)
[2017-02-18] MEDS: POLYETHYLENE GLYCOL 17 GM PKG PO SCH ×2 (18:02→20:12)
[2017-02-19] VITALS: BP 121/54; PULSE 91; RESP 17; TEMP 99.2; O2SAT 97
[2017-02-19] MEDS: ACETAMINOPHEN/HYDROcodone 325 MG/7.5 MG TAB PO PRN ×3 (01:46→09:40)
[2017-02-19 04:00] VITALS: BP 115/56; PULSE 87; RESP 16; TEMP 98.2; O2SAT 98
[2017-02-19] MEDS ORDERED: ONDA4TAB7 PO (07:44)
[2017-02-19] MEDS ORDERED: ZOFR4TAB PO (07:44)
--- NOTE | 2017-02-19 07:47 | PD.ORT.PN ---
Subjective Subjective Remarks Doing well with pain control. Still has not had a bowel movement. Progressing well with physical therapy Objective Vitals Vital Signs Date Time Temp Pulse Resp B/P (MAP) Pulse Ox O2 Delivery O2 Flow Rate FiO2 02/19/17 04:00 98.2 87 16 115/56 (75) 98 02/19/17 00:00 99.2 91 17 121/54 (76) 97 02/18/17 21:23 21 02/18/17 20:15 77 02/18/17 19:00 99.5 86 16 116/52 (73) 100 02/18/17 16:00 97.4 87 16 116/57 (76) 100 02/18/17 12:00 98.2 87 16 126/52 (76) 100 02/18/17 08:00 97.4 89 16 125/60 (81) 97 I/O 02/18/17 02/18/17 02/18/17 02/19/17 02/19/17 02/19/17 07:00 15:00 23:00 07:00 15:00 23:00 Intake Total 480 ml 600 ml 480 ml 240 ml Balance 480 ml 600 ml 480 ml 240 ml Intake Oral 480 ml 600 ml 480 ml 240 ml # Voids 3 4 3 2 # Bowel Movements 0 0 0 0 Result Diagram: 02/18/17 0552 02/18/17 0552 Imaging Last 24 hours Impressions Hip and Pelvis X-Ray 02/16/17 1202 Signed Impressions: Service Date/Time: Thursday, February 16, 2017 13:30 - CONCLUSION: New right total hip prosthesis well seated with postsurgical changes . Remote left total hip prosthesis well seated. Intact pelvis Zacarias Grijalva MD Objective Remarks Right lower extremity: Clean dry dressings intact with drain in place. Minimal swelling. Distally neurovascularly intact. Strong dorsal flexion plantar flexion foot Assessment & Plan Assessment and Plan 1) Right total hip arthroplasty anterior approach POD 3 Weightbearing as tolerated with PT twice a day Change dressing daily Lovenox Incentive spirometry SCDs and JOSH [place] Discharged home today after morning physical therapy f/u with [facility] or [facility] in 2 weeks Travis Guillen Jr. Feb 19, 2017 07:47
[2017-02-19 08:00] VITALS: BP 114/50; PULSE 77; RESP 17; TEMP 97.5; O2SAT 95
[2017-02-19] MEDS: SODIUM CHLORIDE 0.9% FLUSH 5 ML FLUSH IVF SCH (09:00)
[2017-02-19] MEDS: CALCIUM/VITAMIN D 250 MG/125 U TAB PO SCH (09:40)
[2017-02-19] MEDS: VITAMIN E 400 UNIT CAP PO SCH (09:40)
[2017-02-19] MEDS: DOCUSATE SODIUM 100 MG CAP PO SCH (09:40)
[2017-02-19] MEDS: POLYETHYLENE GLYCOL 17 GM PKG PO SCH (09:41)
[2017-02-19] MEDS: ENOXAPARIN SODIUM 40 MG/0.4 ML SYRINGE SQ SCH (09:41)
[2017-02-19] MEDS: CHOLECALCIFEROL (VIT D3) 1000 UNIT TAB PO SCH (09:41)
--- NOTE | 2017-03-17 17:54 | HHI.DS ---
Discharge Summary Admission Date Feb 16, 2017 at 06:27 Discharge Date: Feb 19, 2017 Admitting Diagnosis osteoarthritis of right hip (1) Status post total hip replacement, right Diagnosis: Principal ICD Codes: Z96.641 - Presence of right artificial hip joint Status: Acute (2) Near syncope Diagnosis: Secondary ICD Codes: R55 - Syncope and collapse Procedures right anterior total hip replacement Hospital Course patient admitted from outpatient basis for an elective right total hip arthroplasty. She tolerated procedure well. She was admitted 6 N. On postoperative day 1 she attempted to get up with therapy and had a near syncopal episode. A medical consult was performed. The hospitalist reviewed all her pain medications during this might have contributed to the syncopal episode. Her pain was severe and uncontrollable on postop day 1 due to no pain medications. On postoperative day 2 her pain medications were restarted and she tolerated them well. Her pain is well-controlled. She was out of bed with therapy and granulating well. She was hemodynamically stable with no evidence of syncopal episodes and was fit for discharge home with home healthcare. She' ll remain weightbearing as tolerated. She'll perform daily dressing changes. She'll keep her incision clean and dry. She'll be following up in the office in [address] Noble or his PA Pt Condition on Discharge: Good Discharge Disposition: Disch w/ Home Health Serv Discharge Instructions DIET: Follow Instructions for: As Tolerated, No Restrictions Activities you can perform: Weight Bearing as Triny Follow up Referrals: Orthopedics - 2 Weeks @ [facility] with Adin Noble MD SNF/LONG TERM/ with [facility] New Medications: Hydrocodone-Acetaminophen (Hydrocodone-Acetaminophen) 10-325 mg Tab 1 TAB PO Q4H PRN for PAIN, #60 TAB 0 Refills Ondansetron (Zofran) 4 Mg Tab 4 MG PO Q6HR PRN for NAUSEA OR VOMITING, #50 TAB 0 Refills Rivaroxaban (Xarelto) 10 Mg Tab 10 MG PO DAILY for Blood Clot Prevention for 14 Days, TAB 0 Refills Ondansetron Odt (Ondansetron Odt) 4 Mg Tab 4 MG PO Q6H PRN for NAUSEA, #50 TAB Continued Medications: Acyclovir (Acyclovir) 200 Mg Cap 200 MG PO BID PRN for Infection, CAP 0 Refills Calcium Carbonate-Vitamin D W/Minerals (Calcium 600+D Plus Minerals) 600-400 Mg- Unit Tab 1 TAB PO DAILY for Nutritional Supplement, TAB 0 Refills Cholecalciferol (D3 Super Strength) 2,000 Unit Cap 2000 UNITS PO DAILY for Nutritional Supplement, #30 CAP 0 Refills Cromolyn Opth Drops (Cromolyn Opth Drops) 4% Soln 1 DROP EACH EYE Q6H PRN for DRY EYES, #1 BOTTLE 0 Refills Hydroxychloroquine (Plaquenil) 200 Mg Tab 200 MG PO BID, #30 TAB 0 Refills Take with food Nitrofurantoin Monohydrate Macrocrystals (Macrobid) 100 Mg Cap 100 MG PO BID for Infection, CAP 0 Refills Tizanidine (Zanaflex) 4 Mg Tab 4 MG PO TID PRN for NOLA, TAB 0 Refills Vitamin E (Vitamin E) 200 Unit Cap 400 UNITS PO DAILY for Nutritional Supplement, CAP 0 Refills Discontinued Medications: Meloxicam (Meloxicam) 7.5 Mg Tab 7.5 MG PO DAILY for Arthritis Pain, TAB 0 Refills Tramadol (Tramadol) 50 Mg Tab 50 MG PO Q4H PRN for PAIN, TAB 0 Refills Travis Guillen Jr. Mar 17, 2017 17:54
== END 2017-02-19 12:10 | disposition home health service (06) | DRG 470 ==
LOC: HSDI 02-16 06:27 → N06A 02-16 18:04
PROVIDERS: ADMIT Orthopaedic Surgery Orthopaedic Trauma; ATTEND Orthopaedic Surgery Orthopaedic Trauma
PROC: 0SR904A Replacement of Right Hip Joint with Ceramic on Polyethylene Synthetic Substitute, Uncemented, Open Approach (ICD-10-PCS; principal; 2017-02-16 09:53)
DX: M16.11 Unilateral primary osteoarthritis, right hip (principal); Z96.642 Presence of left artificial hip joint; R55 Syncope and collapse; G43.909 Migraine, unspecified, not intractable, without status migrainosus; M54.16 Radiculopathy, lumbar region; M79.7 Fibromyalgia; Z23 Encounter for immunization; H10.45 Other chronic allergic conjunctivitis; Z87.891 Personal history of nicotine dependence
CPT/HCPCS: 73501; 73502; 76000; 80048; 82140; 82607; 82746; 83735; 84439; 84443; 85014; 85018; 85025; 86592; 86850; 86900; 86901; 90732; C1776; C9290; J0131; J0690; J1100; J1580; J1650; J1885; J2175; J2250; J2270; J2370; J2405; J2550; J2710; J3010; J3370; J7050; J7120; J8501

== ENCOUNTER → 2016-12-21 | Outpatient (CLI) | payer OTHER ==
[~2016-12-21] MED LIST changes: -BUTA1CAP PO; +CALCTAB33 PO; +CHOL20005 PO; +CROM4SOL2 EACH EYE; -FIORTAB4 PO; -HYDR-3366 PO; -HYDR-3516 PO; -MACR100C PO; +MELO7.5T4 PO; -MOBI15TA PO; -TRAM50 PO; +VITA200C3 PO; -ZANA4TAB PO; -ZOVI200C24 PO
== END ==
LOC: CPRE 09:09
PROVIDERS: ATTEND Orthopaedic Surgery Orthopaedic Trauma
DX: Z01.810 Encounter for preprocedural cardiovascular examination (principal); Z01.811 Encounter for preprocedural respiratory examination; Z01.812 Encounter for preprocedural laboratory examination; Z01.818 Encounter for other preprocedural examination; Z79.01 Long term (current) use of anticoagulants; Z13.9 Encounter for screening, unspecified; Z96.60 Presence of unspecified orthopedic joint implant; M79.609 Pain in unspecified limb